=== PATIENT | female | born 2000 | race Caucasian/White ===

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

== ENCOUNTER 2023-07-27 15:36 | Emergency (ER) | payer BC ==
[2023-07-27 15:54] VITALS: TEMP 98.1
[2023-07-27 16:53] LABS: Basophils % (A) 0 %; Eosinophils % (A) 0 %; HCT 44.1 % (34.0-46.0); HGB 14.8 gm/dL (11.4-16.0); Lymphocytes # (A) 1.8 k/uL (1.0-4.8); Lymphocytes % (A) 16 %; MCH 30.3 pg (25.0-35.0); MCHC 33.5 g/dL (31.0-37.0); MCV 90.3 fL (80.0-100.0); Mean Platelet Volume 9.4; Monocytes # (A) 0.6 k/uL (0-1.0); Monocytes % (A) 6 %; Neutrophils # (A) 8.7 k/uL (1.3-7.7); Neutrophils % (A) 76 %; Platelet Count 253 k/uL (150-450); RBC 4.88 m/uL (3.80-5.40); RDW 12.6 % (11.5-15.5); WBC 11.4 k/uL (3.8-10.6)
[2023-07-27 17:07] LABS: ALT 44 U/L (4-34); AST 31 U/L (14-36); African American GFR (CKD) >90 (>60 ml/min/1.73 sqM); Albumin 4.6 g/dL (3.5-5.0); Alkaline Phosphatase 74 U/L (38-126); Anion Gap 8 mmol/L; Blood Urea Nitrogen 5 mg/dL (7-17); Carbon Dioxide 31 mmol/L (22-30); Chloride 99 mmol/L (98-107); Glucose 101 mg/dL (74-99); Non-African American GFR(CKD) >90 (>60 ml/min/1.73 sqM); Sodium 138 mmol/L (137-145); Total Bilirubin 0.5 mg/dL (0.2-1.3); Total Protein 7.8 g/dL (6.3-8.2)
--- NOTE | 2023-07-27 17:41 | ED ---
Dizziness HPI - General Chief Complaint: Dizziness Stated Complaint: Dizziness Time Seen by Provider: 07/27/23 16:26 Source: patient, RN notes reviewed, old records reviewed Mode of arrival: ambulatory Limitations: no limitations - History of Present Illness Initial Comments: This is a 23-year-old female to the ER for evaluation today. Patient is today for evaluation regarding n vertiginous symptoms with nausea and dizziness. Patient noticed blood pressure to be high then began to recheck blood pressure became increasingly dizzy with the room spinning and lightheadedness may be a little bit of imbalance, though symptoms are improving but patient also is very concerned about blood pressure and admits to anxiety over blood pressure elevation. MD Complaint: dizziness, lightheadedness, difficulty walking -: hour(s) Timing: gradual onset, awoke with symptoms Description: difficulty walking, nausea, near-syncope History of Same: No History of Trauma: No Severity: mild Improves With: nothing Worsens With: nothing Associated Symptoms: denies other symptoms - Related Data Home Medications Medication Instructions Recorded Confirmed No Known Home Medications 02/01/15 02/01/15 Allergies Allergy/AdvReac Type Severity Reaction Status Date / Time No Known Allergies Allergy Verified 07/27/23 15:41 Review of Systems ROS Statement: Those systems with pertinent positive or pertinent negative responses have been documented in the HPI. ROS Other: All systems not noted in ROS Statement are negative. Past Medical History Past Medical History: Asthma History of Any Multi-Drug Resistant Organisms: None Reported Past Surgical History: No Surgical Hx Reported Past Psychological History: ADD/ADHD Smoking Status: Never smoker Past Alcohol Use History: Occasional Past Drug Use History: None Reported General Exam Limitations: no limitations General appearance: alert, in no apparent distress Head exam: Present: atraumatic, normocephalic, normal inspection Eye exam: Present: normal appearance, PERRL, EOMI. Absent: scleral icterus, conjunctival injection, periorbital swelling ENT exam: Present: normal exam, mucous membranes moist Neck exam: Present: normal inspection. Absent: tenderness, meningismus, lymphadenopathy Respiratory exam: Present: normal lung sounds bilaterally. Absent: respiratory distress, wheezes, rales, rhonchi, stridor Cardiovascular Exam: Present: regular rate, normal rhythm, normal heart sounds. Absent: systolic murmur, diastolic murmur, rubs, gallop, clicks GI/Abdominal exam: Present: soft, normal bowel sounds. Absent: distended, tenderness, guarding, rebound, rigid Extremities exam: Present: normal inspection, full ROM, normal capillary refill. Absent: tenderness, pedal edema, joint swelling, calf tenderness Back exam: Present: normal inspection Neurological exam: Present: alert, oriented X3, CN II-XII intact Psychiatric exam: Present: normal affect, normal mood Skin exam: Present: warm, dry, intact, normal color. Absent: rash Course Vital Signs 07/27/23 07/27/23 07/27/23 15:38 17:42 18:59 Temperature 98.1 F Pulse Rate 87 87 69 Respiratory 20 18 16 Rate Blood Pressure 147/102 147/91 138/87 O2 Sat by Pulse 100 99 99 Oximetry - Reevaluation(s) Reevaluation #1: Medical records reviewed Reevaluation #2: Patient symptoms are improved here in the ER Reevaluation #3: Patient informed of results questions answered Reevaluation #4: Was pt. sent in by a medical professional or institution (, PA, OPERATIONAL REVIEW SERGEANT, urgent care, hospital, or [facility]...) When possible be specific @ -no Did you speak to anyone other than the patient for history (EMS, parent, family, police, friend...)? What history was obtained from this source @ -no Did you review nursing and triage notes (agree or disagree)? Why? @ -agree Are old charts reviewed (outside hosp., previous admission, EMS record, old EKG, old radiological studies, urgent care reports/EKG's, [facility] records)? Report findings @ -yes Differential Diagnosis (chest pain, altered mental status, abdominal pain women, abdominal pain men, vaginal bleeding, weakness, fever, dyspnea, syncope, headache, dizziness, GI bleed, back pain, seizure, CVA, palpatations, mental health, musculoskeletal)? @ -prior EKG interpreted by me (3pts min.). @ -yes X-rays interpreted by me (1pt min.). @ -no CT interpreted by me (1pt min.). @ -no U/S interpreted by me (1pt. min.). @ -no What testing was considered but not performed or refused? (CT, X-rays, U/S, labs)? Why? @ -none What meds were considered but not given or refused? Why? @ -none Did you discuss the management of the patient with other professionals (judah burris i.e. , PA, OPERATIONAL REVIEW SERGEANT, lab, RT, psych nurse, social worker assistant, dentistry teacher, teacher, real estate loan officer, heel caser)? Give summary @ -no Was smoking cessation discussed for >3mins.? @ -no Was critical care preformed (if so, how long)? @ -no Were there social determinants of health that impacted care today? How? (Homelessness, low income, unemployed, alcoholism, drug addiction, transportation, low edu. Level, literacy, decrease access to med. care, penitentiary, rehab)? @ -none Was there de-escalation of care discussed even if they declined (Discuss DNR or withdrawal of care, Hospice)? DNR status @ -no What co-morbidities impacted this encounter? (DM, HTN, Smoking, COPD, CAD, Cancer, CVA, ARF, Chemo, Hep., AIDS, mental health diagnosis, sleep apnea, morbid obesity)? @ -none Was patient admitted / discharged? Hospital course, mention meds given and route, prescriptions, significant lab abnormalities, going to OR and other pertinent info. @ -23 female with unspecified vertiginous symptoms. Patient has no acute findings here in the ER feels well and can be discharged home Undiagnosed new problem with uncertain prognosis? @ -no Drug Therapy requiring intensive monitoring for toxicity (Heparin, Nitro, Insulin, Cardizem)? @ -no Were any procedures done? @ -no Diagnosis/symptom? @ -Vertigo dizziness hypertension Acute, or Chronic, or Acute on Chronic? @ -Acute Uncomplicated (without systemic symptoms) or Complicated (systemic symptoms)? @ -Complicated Side effects of treatment? @ -no Exacerbation, Progression, or Severe Exacerbation? @ -exacerbation Poses a threat to life or bodily function? How? (Chest pain, [place], NC, pneumonia, PE, COPD, DKA, ARF, appy, cholecystitis, CVA, Diverticulitis, Homicidal, Suicidal, threat to staff... and all critical care pts) @ -no EKG Findings - EKG Comments: EKG Findings:: EKD is sinus 66 OR 149 QRS 89 QTc 410 - EKG Results: EKG: interpreted by JOSE Medical Decision Making - Medical Decision Making 23 female to ER for evaluation of dizziness, showing symptoms of vertigo mildly elevated blood pressure. Patient otherwise feels well and can be discharged home - Lab Data Result diagrams: 07/27/23 16:34 07/27/23 16:34 Lab Results 07/27/23 07/27/23 07/27/23 Range/Units 16:34 16:34 16:34 WBC 11.4 H (3.8-10.6) k/uL RBC 4.88 (3.80-5.40) m/uL Hgb 14.8 (11.4-16.0) gm/dL Hct 44.1 (34.0-46.0) % MCV 90.3 (80.0-100.0) fL MCH 30.3 (25.0-35.0) pg MCHC 33.5 (31.0-37.0) g/dL RDW 12.6 (11.5-15.5) % Plt Count 253 (150-450) k/uL MPV 9.4 Neutrophils % 76 % Lymphocytes % 16 % Monocytes % 6 % Eosinophils % 0 % Basophils % 0 % Neutrophils # 8.7 H (1.3-7.7) k/uL Lymphocytes # 1.8 (1.0-4.8) k/uL Monocytes # 0.6 (0-1.0) k/uL Eosinophils # 0.0 (0-0.7) k/uL Basophils # 0.0 (0-0.2) k/uL Sodium 138 (137-145) mmol/L Potassium 4.0 (3.5-5.1) mmol/L Chloride 99 (98-107) mmol/L Carbon Dioxide 31 H (22-30) mmol/L Anion Gap 8 mmol/L BUN 5 L (7-17) mg/dL Creatinine 0.85 (0.52-1.04) mg/dL Est GFR (CKD-EPI)AfAm >90 (>60 ml/min/1.73 sqM) Est GFR (CKD-EPI)NonAf >90 (>60 ml/min/1.73 sqM) Glucose 101 H (74-99) mg/dL Calcium 11.0 H (8.4-10.2) mg/dL Total Bilirubin 0.5 (0.2-1.3) mg/dL AST 31 (14-36) U/L ALT 44 H (4-34) U/L Alkaline Phosphatase 74 (38-126) U/L Troponin I <0.012 (0.000-0.034) ng/mL Total Protein 7.8 (6.3-8.2) g/dL Albumin 4.6 (3.5-5.0) g/dL - EKG Data -: EKG Interpreted by Me Disposition Clinical Impression: Dizziness, Vertigo, Hypertension Disposition: HOME SELF-CARE Condition: Good Instructions (If sedation given, give patient instructions): Vertigo (ED), Hypertension (ED), Dizziness (ED) Is patient prescribed a controlled substance at d/c from ED?: No Referrals: Zenia Ring MD [Primary Care Provider] - 1-2 days Time of Disposition: 18:00
[2023-07-27] MEDS: MECLIZINE 12.5 MG TAB PO STA (18:09)
[2023-07-27] MEDS: SODIUM CHLORIDE 0.9% 500 ML 500 ML IV STA (18:09)
[2023-07-27] MEDS: ONDANSETRON 4 MG/2 ML VIAL IVP STA (18:09)
[2023-07-27 19:08] VITALS: BP 138/87; PULSE 69; RESP 16
== END 2023-07-27 19:01 | disposition home or self-care (01) ==
LOC: EC 15:36
DX: R42 Dizziness and giddiness (principal); I10 Essential (primary) hypertension
CPT/HCPCS: 36415; 93005; 80053; 84484; 85025; 99284; 96374; J2405